=== PATIENT | female | born 1990 | race Caucasian/White ===

== ENCOUNTER 2020-07-21 10:26 | Day surgery (SDC) | payer BC ==
[~2020-07-21 10:26] MED LIST: Sodium Chloride 0.9% 10 ML SDV IV PRN; Sodium Chloride 0.9% 10 ML Syringe FLUSH PRN; Sodium Chloride 0.9% 2.5 ML Syringe FLUSH PRN
[2020-07-21] MEDS ORDERED: Propofol 200 MG/20 ML SDV ONE (11:09)
[2020-07-21] MEDS ORDERED: Ketamine 500 mg/10 ML MDV ONE (11:09)
[2020-07-21] MEDS ORDERED: Midazolam 1 MG/ML 2 ML SDV ONE (11:09)
[2020-07-21] MEDS ORDERED: Ondansetron 4 MG/2 ML SDV ONE (11:13)
[2020-07-21] MEDS ORDERED: Dexamethasone 4 MG/ML 5 ML MDV ONE (11:13)
--- NOTE | 2020-07-21 11:25 | PCM.PREANE ---
Preanesthetic Assessment - Anesthesia/Transfusion/Family Hx Anesthesia History: Prior Anesthesia Without Reaction Family History of Anesthesia Reaction: No Transfusion History: Prior Transfusion Without Reaction - Review of Systems General: No Symptoms Pulmonary: No Symptoms Cardiovascular: No Symptoms Gastrointestinal: No Symptoms Neurological: No Symptoms Other: Reports: None - Physical Assessment NPO Status Date: 07/20/20 Vital Signs: Last Vital Signs Temp 97.9 F 07/21/20 10:50 Pulse 70 07/21/20 10:50 Resp 15 07/21/20 10:50 BP 129/75 07/21/20 10:50 Pulse Ox 100 07/21/20 10:50 Height: 5 ft 5 in Weight: 52.163 kg ASA Class: 2 Mental Status: Alert & Oriented x3 Airway Class: Mallampati = 2 Dentition: Reports: Normal Dentition ROM/Head Extension: Full Lungs: Clear to Auscultation, Normal Respiratory Effort Cardiovascular: Regular Rate, Regular Rhythm - Allergies Allergies/Adverse Reactions: Allergies Allergy/AdvReac Type Severity Reaction Status Date / Time No Known Allergies Allergy Verified 07/16/20 10:15 - Blood Blood Available: No - Anesthesia Plan Pre-Op Medication Ordered: None - Acknowledgements Anesthesia Type Planned: General Anesthesia Pt an Appropriate Candidate for the Planned Anesthesia: Yes Alternatives and Risks of Anesthesia Discussed w Pt/Guardian: Yes Pt/Guardian Understands and Agrees with Anesthesia Plan: Yes Additional Comments: PMH: on buprevorphine, molar PLAN: ga/lma with 2 large bore ivs, divided dose of buprenorphine for analgesia, intraoperative analgesia with acetaminophen and toradol PreAnesthesia Questionnaire HEENT History: Reports: None Cardiovascular History: Reports: None Respiratory History: Reports: None Gastrointestinal History: Reports: None Genitourinary History: Reports: None 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: Musculoskeletal History: Reports: None Neurological History: Reports: None Psychiatric History: Reports: Addiction, Anxiety Endocrine/Metabolic History: Reports: None Hematologic History: Reports: Blood Transfusion(s), Other (See Below) Other Hematologic History: hereditary spherocytosis Immunologic History: Reports: None Oncologic (Cancer) History: Reports: None Dermatologic History: Reports: None - Past Surgical History Head Surgeries/Procedures: Reports: None HEENT Surgical History: Reports: Adenoidectomy, Oral Surgery, Tonsillectomy Cardiovascular Surgical History: Reports: None Respiratory Surgical History: Reports: None GI Surgical History: Reports: Other (See Below) Other GI Surgeries/Procedures: splenectomy due to hereditary spherocytosis Female Surgical History: Reports: Section Endocrine Surgical History: Reports: None Neurological Surgical History: Reports: None Musculoskeletal Surgical History: Reports: None Oncologic Surgical History: Reports: None Dermatological Surgical History: Reports: None - SUBSTANCE USE Tobacco Use Status *Q: Former Tobacco User Tobacco Use Within Last Twelve Months: No Recreational Drug Type: Reports: Marijuana/Hashish - HOME MEDS Home Medications: Home Meds Buprenorphine [Subutex] 2 mg PO DAILY 07/16/20 [History] Pnv No.95/Ferrous Fum/Folic AC [ Vitamin Tablet] 1 tab PO DAILY 07/16/20 [History] - CURRENT (IN HOUSE) MEDS Current Meds: Current Medications Sodium Chloride (Saline Flush) 10 ml FLUSH ASDIRECTED PRN PRN Reason: Keep Vein Open Sodium Chloride (Saline Flush) 2.5 ml FLUSH ASDIRECTED PRN PRN Reason: Keep Vein Open Sodium Chloride (Normal Saline) 10 ml IV ASDIRECTED PRN PRN Reason: IV Use Sodium Chloride (Saline Flush) 10 ml FLUSH ASDIRECTED PRN PRN Reason: Keep Vein Open Sodium Chloride (Saline Flush) 2.5 ml FLUSH ASDIRECTED PRN PRN Reason: Keep Vein Open Sodium Chloride (Normal Saline) 10 ml IV ASDIRECTED PRN PRN Reason: IV Use Discontinued Medications Dexamethasone (Dexamethasone) Confirm Administered Dose 20 mg .ROUTE .STK-MED ONE Stop: 07/21/20 11:14 Ketamine HCl (Ketalar) Confirm Administered Dose 500 mg .ROUTE .STK-MED ONE Stop: 07/21/20 11:10 Lidocaine HCl (Xylocaine-Mpf 1%) Confirm Administered Dose 5 ml .ROUTE .STK-MED ONE Stop: 07/21/20 11:14 Midazolam HCl (Versed 1 Mg/Ml) Confirm Administered Dose 2 mg .ROUTE .STK-MED ONE Stop: 07/21/20 11:10 Ondansetron HCl (Zofran) Confirm Administered Dose 4 mg .ROUTE .STK-MED ONE Stop: 07/21/20 11:14 Propofol (Diprivan 20 Ml) Confirm Administered Dose 200 mg .ROUTE .STK-MED ONE Stop: 07/21/20 11:10
[2020-07-21] MEDS ORDERED: Lactated Ringers 1,000 ML IV SCH ×2 (11:30→13:15)
[2020-07-21] MEDS ORDERED: Methylergonovine 0.2 MG/1 ML Amp ONE (12:41)
[2020-07-21] MEDS ORDERED: Oxytocin 10 Units/1 ML SDV ONE (12:52)
[2020-07-21] MEDS ORDERED: ceFAZolin 1 GM Vial ONE (13:01)
[2020-07-21] MEDS ORDERED: Sodium Chloride 0.9% 20 ML ONE (13:01)
[2020-07-21] MEDS ORDERED: Ketorolac 15 MG/ML SDV IVPUSH ONE (13:10)
--- NOTE | 2020-07-21 13:13 | PCM.OPNOTE ---
- General Post-Op/Procedure Note Date of Surgery/Procedure: 07/21/20 Operative Procedure(s): Suction d & c Findings: Products of conception Pre Op Diagnosis: Nonviable with suspicion for partial molar Post-Op Diagnosis: Same Anesthesia Technique: General LMA Primary Surgeon: Gail Brand Secondary Surgeon: Julieth Arias ([id number]) Pathology: Products of conception suspicious for partial molar Fluid Replacement, Intraop: 1,700 Output, Urine Amount: 100 EBL in mLs: 1,000 Complications: none known Condition: Stable
--- NOTE | 2020-07-21 14:14 | PCM.POSTAN ---
POST ANESTHESIA ASSESSMENT - MENTAL STATUS Mental Status: Alert, Oriented - VITAL SIGNS Vital Signs: Last Vital Signs Temp 98.2 F 07/21/20 13:59 Pulse 99 07/21/20 13:59 Resp 15 07/21/20 13:59 BP 117/65 07/21/20 13:59 Pulse Ox 99 07/21/20 13:59 - RESPIRATORY Respiratory Status: Respiratory Rate WNL, Airway Patent, O2 Saturation Stable - CARDIOVASCULAR CV Status: Pulse Rate WNL, Blood Pressure Stable - GASTROINTESTINAL GI Status: No Symptoms - POST OP HYDRATION Hydration Status: Adequate & Stable
--- NOTE | 2020-07-21 14:15 | PCM48HPAN ---
Post Anesthesia Note - EVALUATION WITHIN 48HRS OF ANESTHETIC Vital Signs in Normal Range: Yes Patient Participated in Evaluation: Yes Respiratory Function Stable: Yes Airway Patent: Yes Cardiovascular Function Stable: Yes Hydration Status Stable: Yes Pain Control Satisfactory: Yes Nausea and Vomiting Control Satisfactory: Yes Mental Status Recovered: Yes Vital Signs: Last Vital Signs Temp 98.2 F 07/21/20 13:59 Pulse 99 07/21/20 13:59 Resp 15 07/21/20 13:59 BP 117/65 07/21/20 13:59 Pulse Ox 99 07/21/20 13:59
--- NOTE | 2020-07-21 15:06 | OR ---
SURGEON: Gail Brand M.D. DATE OF PROCEDURE: 07/21/2020 PREOPERATIVE DIAGNOSES: Missed , suspected partial molar . POSTOPERATIVE DIAGNOSES: Missed , suspected partial molar . PROCEDURE: Suction D and C. ANESTHESIA: General LMA. ESTIMATED BLOOD LOSS: 1000 mL. FLUIDS: 1700 mL of crystalloid. COMPLICATIONS: None known. FINDINGS: Enlarged uterus with copious products of conception. DISPOSITION: The patient to PACU, stable. SPECIMENS: To pathology. PROCEDURE DETALIS: Kyleigh is a 29-year-old female who presented initially for her new OB visit. On examination that day with ultrasound, she was found to have an an embryo without cardiac activity, gestational sac, and then large amount of a multi-cystic tissue within the endometrium concerning for a partial molar . Quantitative hCG levels have been around 200,000. She has not had any bleeding. Followup ultrasound confirmed this finding. However, embryo was no longer present and collapsing gestational sac present. Given this finding, I felt best to proceed with surgical intervention in the form of suction D and C. She and her understand that I am very suspicious for partial molar and I am anticipating increased blood loss with this procedure. Anesthesia has been notified. Nursing staff has been notified. The patient has been typed and crossed. Initial hemoglobin was 11.8 with normal platelet count. After signing proper consents, the patient was taken to the operating room and underwent general LMA, was placed in modified dorsal lithotomy position, and was prepped and draped in usual sterile fashion. Bladder was drained. Time-out was held. A speculum was introduced in vagina. Anterior lip of cervix was grasped with an Allis clamp. Cervix was now gently dilated to 10 mm using a 10 mm curved suction curette. This was gently introduced to the fundus and then with suction applied, I was able to begin emptying the uterine cavity of products of conception. As to be expected, large amount of blood did return as the uterus was emptied. Total blood loss was approximately 1000 mL. At this time, hemostasis was evident. The uterus was involuting very nicely, and the patient remained stable. The patient did receive 1 g of Ancef, 20 units of Pitocin IV, and a 1 g of TXA during the procedure. Hemostasis remained evident. Uterus remained firm, measuring approximately 6 to 8 weeks. Specimens was sent to pathology. Pathology has been notified that chromosome analysis needs to be performed. Sponge and instrument counts were correct. The patient will go to PACU in stable condition and will be monitored closely for bleeding. DOT / SAGRARIO /[id number]
== END 2020-07-21 14:50 | disposition home or self-care (01) ==
LOC: MW.SDS 10:26
PROVIDERS: ATTEND Obstetrics & Gynecology
DX: O02.1 Missed abortion (principal); O43.891 Other placental disorders, first trimester; Q92 Other trisomies and partial trisomies of the autosomes, not elsewhere classified; Z79.899 Other long term (current) drug therapy; Z98.890 Other specified postprocedural states; Z87.891 Personal history of nicotine dependence
CPT/HCPCS: 36415; 59820; 84702; 85027; 86850; 86900; 86901; 86920; 86921; 86922; 88233; 88307; J0131; J0690; J1100; J2210; J2250; J2405; J2590; J2704; J7120; 01965